=== PATIENT | female | born 1985 | race Caucasian/White ===

== ENCOUNTER 2016-07-23 03:55 | Observation (INO) | payer OTHER ==
[~2016-07-23] VITALS: Ht 170.2 cm; Wt 65.8 kg
[2016-07-23 04:25] LABS: HEMOGLOBIN 13.4 gm/dl (12.3-15.3); RED BLOOD COUNT 4.58 M/UL (4.00-5.10); WHITE BLOOD COUNT 10.3 K/UL (4.5-11.0)
[2016-07-23 04:50] LABS: BUN/CREATININE RATIO 24 (0-10)
--- NOTE | 2016-07-23 09:52 | NUR ---
At 0810, entered patient's room to introduce myself as nurse and assess patient. Patient was talking but TV was so loud, I was unable to hear her. I turned TV off. At which point, Saadia stated "why is every one so hateful". She was talking rapidly and loudly but not making clear statement about what was causing her to be upset. She asked for someone else to be her nurse. From my understanding, she was upset that I turned her tv off.
[2016-07-23] MEDS ORDERED: SUBOXONE 8 MG-1 EACH SL (10:08)
[2016-07-23] MEDS ORDERED: LISINOPRIL5 MG PO (10:09)
[2016-07-23] MEDS ORDERED: NEURONTIN800 MG PO (10:10)
--- NOTE | 2016-07-23 10:23 | NUR ---
PT OFF FLOOR AT THIS TIME. IV SITE SALINE LOCKED. DR Brisa PURCELL HAS PERFORMED VAGINAL ULTRASOUND AND WILL PERFORM D AND C .
--- NOTE | 2016-07-23 11:38 | NUR ---
PT HAS SIGNED CONSENT FOR D&C. NURSE WALKS IN ROOM AND FINDS PT WITH PLATE IN HER LAP AND FORK IN HER HAND. PT WAS ABOUT TO EAT AND UNSURE IF ANY FOOD HAS BEEN EATEN. NURSE STRESSES TO PT THE IMPORTANCE OF STAYING NPO RELATED TO SURGERY AND RISK OF ASPIRATION. ANTIBIOTICS ARE STARTED AT THIS TIME.
--- NOTE | 2016-07-23 13:19 | NUR ---
1305 PT OFF OB FLOOR AT THIS TIME. IV SITE IS SALINE LOCKED.
--- NOTE | 2016-07-23 13:55 | NUR ---
PT TO OR FOR D&C
--- NOTE | 2016-07-23 16:30 | NUR ---
1615 PT RETURNS FROM OR AFTER D&C.
--- NOTE | 2016-07-23 17:32 | NUR ---
PT HAS BEEN OOB TO RESTROOM. AMBULATES WITHOUT DIFFICULTY. NO UNSTEADY GAIT NOTED. VOIDS EASILY. PT DENIES ANY DIFFICULTY. DENIES ANY PAIN. BLEEDING SMALL AMOUNT ON PAD FOR ONE HOUR. NO CLOTS PRESENT. PT HAS TOLERATED REGULAR DIET. PT WILL BE DISCHARGED HOME.
== END 2016-07-23 17:50 | disposition home or self-care (01) ==
LOC: ER1 03:55 → OB 06:38
PROVIDERS: Family Medicine; ADMIT Obstetrics & Gynecology
PROC: 10D17ZZ Extraction of Products of Conception, Retained, Via Natural or Artificial Opening (ICD-10-PCS; principal; 2016-07-23 15:42)
DX: O03.37 Sepsis following incomplete spontaneous abortion (principal); A41.9 Sepsis, unspecified organism; F17.210 Nicotine dependence, cigarettes, uncomplicated; Z79.899 Other long term (current) drug therapy
CPT/HCPCS: 36415; 80053; 80307; 84703; 85025; 86900; 86901; 96361; 96365; 96367; 99284; G0378; J1885; J1956; J2250; J2405; J2795; J7120

== ENCOUNTER 2016-08-08 00:36 | Emergency (ER) | payer OTHER ==
[~2016-08-08 00:36] MED LIST: LISINOPRIL5 MG PO; NEURONTIN800 MG PO; SUBOXONE 8 MG-1 EACH SL
[2016-08-08 03:09] LABS: HEMOGLOBIN 12.1 gm/dl (12.3-15.3); RED BLOOD COUNT 4.15 M/UL (4.00-5.10); WHITE BLOOD COUNT 29.5 K/UL (4.5-11.0)
[2016-08-08 03:25] LABS: BUN/CREATININE RATIO 19 (0-10)
[2016-08-08 11:16] LABS: HEMOGLOBIN 11.3 gm/dl (12.3-15.3); RED BLOOD COUNT 3.89 M/UL (4.00-5.10)
[2016-08-08 11:23] LABS: WHITE BLOOD COUNT 12.6 K/UL (4.5-11.0)
[2016-08-08 11:49] LABS: BUN/CREATININE RATIO 17 (0-10)
== END 2016-08-08 14:43 ==
LOC: ER1 00:36
PROVIDERS: Family Medicine
DX: S00.81XA Abrasion of other part of head, initial encounter (principal); F19.10 Other psychoactive substance abuse, uncomplicated; F17.200 Nicotine dependence, unspecified, uncomplicated; D72.829 Elevated white blood cell count, unspecified; Y04.2XXA Assault by strike against or bumped into by another person, initial encounter
CPT/HCPCS: 36415; 70450; 71020; 72125; 80053; 80307; 81001; 83605; 84703; 85025; 87040; 87086; 90471; 90715; 96374; 99284; G0480; J2060